=== PATIENT | male | born 1970 | race Caucasian/White ===

== ENCOUNTER 2018-12-01 11:28 | Emergency (ER) | payer MEDICARE, MEDICAID ==
[~2018-12-01] VITALS: Ht 180.3 cm; Wt 68.2 kg
[~2018-12-01 11:28] MED LIST: QUET300T2 PO; RISP3TAB44 PO
[2018-12-01 11:35] VITALS: BP 114/70
== END 2018-12-01 12:30 | disposition left against medical advice (07) ==
LOC: EMS 11:29
DX: Z76.0 Encounter for issue of repeat prescription (principal); K21.9 Gastro-esophageal reflux disease without esophagitis; F31.9 Bipolar disorder, unspecified; F20.9 Schizophrenia, unspecified; F17.210 Nicotine dependence, cigarettes, uncomplicated; F12.90 Cannabis use, unspecified, uncomplicated; F19.90 Other psychoactive substance use, unspecified, uncomplicated; Z53.21 Procedure and treatment not carried out due to patient leaving prior to being seen by health care provider

== ENCOUNTER 2018-12-22 02:05 | Inpatient (IN) | payer MEDICAID, MEDICARE ==
[~2018-12-22] VITALS: Ht 175.3 cm; Wt 60.8 kg
[2018-12-22] MEDS ORDERED: ZOLPIDEM TARTRATE 10 MG TABLET PO PRN (03:00)
[2018-12-22] MEDS ORDERED: OLANZapine 5 MG TABLET PO PRN (03:00)
[2018-12-22 03:49] LABS: AMPHET/METH SCREEN,URINE NEGATIVE (NEGATIVE); BARBITURATE SCREEN, URINE NEGATIVE (NEGATIVE); BENZODIAZEPINES SCREEN,URINE NEGATIVE (NEGATIVE); CANNABINOID SCREEN,URINE NEGATIVE (NEGATIVE); COCAINE SCREEN,URINE NEGATIVE (NEGATIVE); METHADONE SCREEN, URINE NEGATIVE (NEGATIVE); OPIATE SCREEN,URINE NEGATIVE (NEGATIVE)
[2018-12-22 03:50] LABS: PHENCYCLIDINE SCREEN,URINE NEGATIVE (NEGATIVE)
[2018-12-22] MEDS: LORazepam 2 MG TABLET PO PRN ×2 (04:08→20:11)
[2018-12-22 05:26] VITALS: BP 110/75
[2018-12-22] MEDS ORDERED: PNEUMOCOCCAL VACCINE POLYVALENT 0.5 ML VIAL [PPSV23] IM ONE (05:45)
[2018-12-22] MEDS ORDERED: MAGNESIUM HYDROXIDE SUSPENSION 30 ML UDCUP PO PRN ×2 (07:45→13:15)
[2018-12-22] MEDS ORDERED: GuaiFENesin/D-METHORPHAN [SUGAR-FREE] 200-20MG/10 ML SYRUP UDCUP PO PRN ×2 (07:45→13:15)
[2018-12-22] MEDS ORDERED: NICOTINE 14 MG/24 HOUR PATCH TD PRN (07:45)
[2018-12-22] MEDS ORDERED: ALBUTEROL SULFATE HFA 90 MCG/PUFF 8 GM INHALER IH PRN (07:45)
[2018-12-22] MEDS ORDERED: LOPERAMIDE HCL 2 MG CAPSULE PO PRN ×2 (07:45→13:15)
[2018-12-22] MEDS ORDERED: CloNIDine HCL 0.1 MG TABLET PO PRN (07:45)
[2018-12-22] MEDS ORDERED: PETROLATUM,WHITE 71 GM JELLY TP PRN (07:45)
[2018-12-22] MEDS ORDERED: ONDANSETRON HCL 4 MG TABLET PO PRN (07:45)
[2018-12-22] MEDS ORDERED: MAG HYDROX/AL HYDROX/SIMETH ES 30 ML SUSPENSION UDCUP PO PRN ×2 (07:45→13:15)
[2018-12-22] MEDS ORDERED: IBUPROFEN 400 MG TABLET PO PRN (07:45)
[2018-12-22] MEDS ORDERED: ACETAMINOPHEN 325 MG TABLET PO PRN ×2 (07:45→13:15)
[2018-12-22] MEDS: BACITRACIN 28.4 GM OINTMENT TP SCH ×2 (07:54→17:41)
[2018-12-22] MEDS ORDERED: HydrOXYzine PAMOATE 50 MG CAPSULE PO PRN (13:15)
[2018-12-22] MEDS ORDERED: PROMETHAZINE HCL 25 MG TABLET PO PRN (13:15)
[2018-12-22] MEDS ORDERED: PALIPERIDONE 1.5 MG ER TABLET PO PRN (13:15)
[2018-12-22] MEDS ORDERED: TUBERCULIN, PURIFIED PROTEIN DERIVATIVE 5 TU/0.1 ML SYG ID ONE (13:15)
[2018-12-22] MEDS: PALIPERIDONE PALMITATE 234 MG/1.5 ML SYRINGE IM ONE ×2 (14:35→14:44)
[2018-12-22] MEDS: THIAMINE HCL 100 MG TABLET PO SCH (17:41)
[2018-12-22 18:25] VITALS: BP 120/67
[2018-12-22] MEDS: PALIPERIDONE 3 MG ER TABLET PO SCH (20:11)
[2018-12-23 06:13] LABS: BASOPHILS % (AUTO) 0.3 % (0.0-2.0); EOSINOPHILS % (AUTO) 0.2 % (1.0-6.0); HEMATOCRIT 38.3 % (41-53); HEMOGLOBIN 13.4 g/dL (13.5-17.5); LYMPHOCYTES # (AUTO) 0.8 K/uL (1.0-4.8); LYMPHOCYTES % (AUTO) 7.2 % (22.0-44.0); MEAN CORPUSCULAR HEMOGLOBIN 31.4 pg (26.0-34.0); MEAN CORPUSCULAR HGB CONC 34.9 G/dL (31.0-37.0); MEAN CORPUSCULAR VOLUME 90 fL (80-100); MONOCYTES # (AUTO) 0.8 K/uL (0.1-1.0); MONOCYTES % (AUTO) 6.9 % (2.0-9.0); NEUTROPHILS # (AUTO) 9.5 K/uL (1.8-7.7); PLATELET COUNT (AUTO) 340 K/uL (150-450); RED BLOOD CELL COUNT(AUTO) 4.25 MIL/uL (4.50-5.90); RED CELL DISTRIBUTION WIDTH 13.5 % (11.5-14.5)
[2018-12-23 06:45] LABS: NEUTROPHILS % (AUTO) 85.4 % (40.0-70.0)
[2018-12-23 06:56] LABS: ALANINE AMINOTRANSFERASE 34 U/L (12-78); ALBUMIN 2.5 g/dL (3.4-5.0); ALKALINE PHOSPHATASE 69 U/L (46-116); ANION GAP 5 mmol/L (8-16); ASPARTATE AMINOTRANSFERASE 29 U/L (15-37); BILIRUBIN,TOTAL 0.5 mg/dL (0.1-1.0); CALCIUM, TOTAL 8.9 mg/dL (8.8-10.5); CARBON DIOXIDE 31 mmol/L (22-29); CHLORIDE 97 mmol/L (98-107); CREATININE 0.81 mg/dL (0.60-1.30); GLOMERULAR FILTR. RATE CALC > 60 mL/min (>60); GLUCOSE,RANDOM 89 mg/dL (70-110); HDL CHOLESTEROL 53 mg/dL (40-60); SODIUM SERUM 133 mmol/L (136-145); TOTAL PROTEIN, SERUM 6.1 g/dL (6.4-8.2); TRIGLYCERIDES 66 mg/dL (15-150); UREA NITROGEN, BLOOD 13 mg/dL (7-18)
[2018-12-23 07:03] LABS: HEMOGLOBIN A1C 5.7 % (4.5-6.2)
[2018-12-23 07:21] LABS: CHOL/HDL RATIO 2.1 (4.2-7.3); CHOLESTEROL 111 mg/dL (131-200); LDL CHOL (CALC.) 45 mg/dL (0-130); THYROID STIMULATING HORMONE 2.84 uIU/mL (0.36-3.74)
[2018-12-23 08:26] VITALS: BP 116/72
[2018-12-23] MEDS: THIAMINE HCL 100 MG TABLET PO SCH ×2 (09:56→16:08)
[2018-12-23] MEDS: FOLIC ACID 1 MG TABLET PO SCH (09:57)
[2018-12-23] MEDS: MULTIVITAMINS WITH MINERALS, THERAPEUTIC TABLET PO SCH (09:57)
[2018-12-23] MEDS: NALTREXONE HCL 50 MG TABLET PO SCH (09:58)
[2018-12-23] MEDS: BACITRACIN 28.4 GM OINTMENT TP SCH ×2 (09:59→16:08)
[2018-12-23] MEDS ORDERED: PALI156D IM (11:31)
[2018-12-23] MEDS ORDERED: NALT50TA PO (11:31)
[2018-12-23 16:32] VITALS: BP 123/72
[2018-12-23] MEDS: PALIPERIDONE 3 MG ER TABLET PO SCH (20:13)
[2018-12-24] MEDS: FOLIC ACID 1 MG TABLET PO SCH (09:48)
[2018-12-24] MEDS: MULTIVITAMINS WITH MINERALS, THERAPEUTIC TABLET PO SCH (09:48)
[2018-12-24] MEDS: THIAMINE HCL 100 MG TABLET PO SCH (09:48)
[2018-12-24] MEDS: NALTREXONE HCL 50 MG TABLET PO SCH (09:49)
[2018-12-24] MEDS: BACITRACIN 28.4 GM OINTMENT TP SCH (09:49)
[2018-12-24] MEDS ORDERED: MULT-1239 PO (12:39)
[2018-12-24] MEDS ORDERED: THIA100T67 PO (12:39)
[2018-12-24] MEDS ORDERED: FOLI1 PO (12:39)
[2018-12-26] MEDS ORDERED: PALIPERIDONE PALMITATE 156 MG/ML SYRINGE IM ONE (09:00)
== END 2018-12-24 15:05 | disposition home or self-care (01) | DRG 885 ==
LOC: EMS 02:05 → B2X 03:06 → 3EC 04:32
PROVIDERS: ADMIT Psychiatry & Neurology Psychiatry; ATTEND Psychiatry & Neurology Psychiatry
DX: F20.9 Schizophrenia, unspecified (principal); F12.90 Cannabis use, unspecified, uncomplicated; F10.10 Alcohol abuse, uncomplicated; F15.90 Other stimulant use, unspecified, uncomplicated; F29 Unspecified psychosis not due to a substance or known physiological condition; F17.200 Nicotine dependence, unspecified, uncomplicated; F19.10 Other psychoactive substance abuse, uncomplicated; F41.9 Anxiety disorder, unspecified; I10 Essential (primary) hypertension; K21.9 Gastro-esophageal reflux disease without esophagitis; Z59.0 Homelessness; Z81.8 Family history of other mental and behavioral disorders; Z91.19 Patient's noncompliance with other medical treatment and regimen; Z88.0 Allergy status to penicillin; Z88.8 Allergy status to other drugs, medicaments and biological substances; Z71.41 Alcohol abuse counseling and surveillance of alcoholic; Z71.51 Drug abuse counseling and surveillance of drug abuser; Z71.6 Tobacco abuse counseling; Z28.21 Immunization not carried out because of patient refusal
CPT/HCPCS: 83036; 84443; 87081; 90686; 90732

== ENCOUNTER 2019-01-02 20:15 | Emergency (ER) | payer MEDICARE ==
[~2019-01-02] VITALS: Ht 180.3 cm; Wt 61.4 kg
[~2019-01-02 20:15] MED LIST changes: +FOLI1 PO; +MULT-1239 PO; +NALT50TA PO; +PALI156D IM; -QUET300T2 PO; -RISP3TAB44 PO; +THIA100T67 PO
[2019-01-02 20:29] VITALS: BP 113/72
== END 2019-01-02 20:59 | disposition left against medical advice (07) ==
LOC: EMS 20:17
DX: R51 Headache (principal); F31.9 Bipolar disorder, unspecified; K21.9 Gastro-esophageal reflux disease without esophagitis; I10 Essential (primary) hypertension; F20.9 Schizophrenia, unspecified; F17.210 Nicotine dependence, cigarettes, uncomplicated; F12.90 Cannabis use, unspecified, uncomplicated; F19.90 Other psychoactive substance use, unspecified, uncomplicated; Z76.0 Encounter for issue of repeat prescription; Z53.21 Procedure and treatment not carried out due to patient leaving prior to being seen by health care provider

== ENCOUNTER 2019-01-05 18:02 | Emergency (ER) | payer MEDICARE ==
[~2019-01-05] VITALS: Ht 172.7 cm; Wt 68.2 kg
[2019-01-05] MEDS ORDERED: OXYC-43 PO (18:23)
[2019-01-05] MEDS ORDERED: QUET25TA PO (18:23)
[2019-01-05 19:34] VITALS: BP 97/59
[2019-01-05] MEDS ORDERED: QUEtiapine FUMARATE 100 MG TABLET PO ONE (19:45)
== END 2019-01-05 20:25 | disposition home or self-care (01) ==
LOC: EMS 18:04
DX: F15.10 Other stimulant abuse, uncomplicated (principal); F20.9 Schizophrenia, unspecified; F31.9 Bipolar disorder, unspecified; I10 Essential (primary) hypertension; K21.9 Gastro-esophageal reflux disease without esophagitis; F12.90 Cannabis use, unspecified, uncomplicated; F17.210 Nicotine dependence, cigarettes, uncomplicated; Z88.0 Allergy status to penicillin; Z88.8 Allergy status to other drugs, medicaments and biological substances

== ENCOUNTER 2019-01-26 19:05 | Emergency (ER) | payer MEDICAID, MEDICARE ==
[~2019-01-26] VITALS: Ht 180.3 cm; Wt 60.0 kg
[~2019-01-26 19:05] MED LIST changes: -FOLI1 PO; -MULT-1239 PO; -NALT50TA PO; +OXYC-43 PO; -PALI156D IM; +QUET25TA PO; -THIA100T67 PO
[2019-01-26 20:25] LABS: BASOPHILS % (AUTO) 0.5 % (0.0-2.0); EOSINOPHILS % (AUTO) 0 % (1.0-6.0); HEMOGLOBIN 10.3 g/dL (13.5-17.5); LYMPHOCYTES # (AUTO) 0.6 K/uL (1.0-4.8); LYMPHOCYTES % (AUTO) 5.9 % (22.0-44.0); MEAN CORPUSCULAR HEMOGLOBIN 30.9 pg (26.0-34.0); MEAN CORPUSCULAR HGB CONC 34.4 G/dL (31.0-37.0); MEAN CORPUSCULAR VOLUME 90 fL (80-100); MONOCYTES # (AUTO) 0.5 K/uL (0.1-1.0); MONOCYTES % (AUTO) 4.9 % (2.0-9.0); NEUTROPHILS # (AUTO) 8.8 K/uL (1.8-7.7); PLATELET COUNT (AUTO) 279 K/uL (150-450); RED BLOOD CELL COUNT(AUTO) 3.33 MIL/uL (4.50-5.90); RED CELL DISTRIBUTION WIDTH 13.4 % (11.5-14.5)
[2019-01-26 20:28] LABS: NEUTROPHILS % (AUTO) 88.7 % (40.0-70.0)
[2019-01-26 20:32] LABS: ANION GAP 6 mmol/L (8-16); CALCIUM, TOTAL 8.6 mg/dL (8.8-10.5); CARBON DIOXIDE 29 mmol/L (22-29); CHLORIDE 96 mmol/L (98-107); CREATININE 0.84 mg/dL (0.60-1.30); GLOMERULAR FILTR. RATE CALC > 60 mL/min (>60); GLUCOSE,RANDOM 114 mg/dL (70-110); POTASSIUM 3.5 mmol/L (3.5-5.1); SODIUM SERUM 131 mmol/L (136-145); UREA NITROGEN, BLOOD 19 mg/dL (7-18)
[2019-01-26 20:39] LABS: ALANINE AMINOTRANSFERASE 19 U/L (12-78); ALBUMIN 2.4 g/dL (3.4-5.0); ALKALINE PHOSPHATASE 68 U/L (46-116); ASPARTATE AMINOTRANSFERASE 24 U/L (15-37); BILIRUBIN,TOTAL 0.4 mg/dL (0.1-1.0); TOTAL PROTEIN, SERUM 5.7 g/dL (6.4-8.2)
[2019-01-26 21:05] LABS: PLATELET MORPHOLOGY COMMENT NORMAL
[2019-01-26 21:29] LABS: AMPHET/METH SCREEN,URINE NEGATIVE (NEGATIVE); BARBITURATE SCREEN, URINE NEGATIVE (NEGATIVE); BENZODIAZEPINES SCREEN,URINE NEGATIVE (NEGATIVE); CANNABINOID SCREEN,URINE NEGATIVE (NEGATIVE); COCAINE SCREEN,URINE NEGATIVE (NEGATIVE); METHADONE SCREEN, URINE NEGATIVE (NEGATIVE); OPIATE SCREEN,URINE NEGATIVE (NEGATIVE)
[2019-01-26 21:31] LABS: PHENCYCLIDINE SCREEN,URINE NEGATIVE (NEGATIVE)
[2019-01-26 21:50] VITALS: BP 119/69
== END 2019-01-26 23:25 | disposition home or self-care (01) ==
LOC: EMS 19:07
DX: F20.9 Schizophrenia, unspecified (principal); F32.9 Major depressive disorder, single episode, unspecified; F31.9 Bipolar disorder, unspecified; K21.9 Gastro-esophageal reflux disease without esophagitis; I10 Essential (primary) hypertension; F17.210 Nicotine dependence, cigarettes, uncomplicated; F12.90 Cannabis use, unspecified, uncomplicated; F19.90 Other psychoactive substance use, unspecified, uncomplicated; Z88.0 Allergy status to penicillin; Z88.8 Allergy status to other drugs, medicaments and biological substances
CPT/HCPCS: 36415; 80053; 80307; 85025; 99284; G0480

== ENCOUNTER 2019-02-09 22:38 | Emergency (ER) | payer MEDICAID ==
[~2019-02-09] VITALS: Ht 185.4 cm; Wt 61.4 kg
[~2019-02-09 22:38] MED LIST changes: -OXYC-43 PO
[2019-02-09 23:12] LABS: BASOPHILS % (AUTO) 0.5 % (0.0-2.0); EOSINOPHILS % (AUTO) 0.1 % (1.0-6.0); HEMATOCRIT 30.7 % (41-53); HEMOGLOBIN 10.3 g/dL (13.5-17.5); LYMPHOCYTES # (AUTO) 1.5 K/uL (1.0-4.8); LYMPHOCYTES % (AUTO) 10.9 % (22.0-44.0); MEAN CORPUSCULAR HEMOGLOBIN 29.7 pg (26.0-34.0); MEAN CORPUSCULAR HGB CONC 33.5 G/dL (31.0-37.0); MEAN CORPUSCULAR VOLUME 89 fL (80-100); MONOCYTES # (AUTO) 0.7 K/uL (0.1-1.0); MONOCYTES % (AUTO) 5.2 % (2.0-9.0); NEUTROPHILS # (AUTO) 11.6 K/uL (1.8-7.7); NEUTROPHILS % (AUTO) 83.3 % (40.0-70.0); PLATELET COUNT (AUTO) 526 K/uL (150-450); RED BLOOD CELL COUNT(AUTO) 3.46 MIL/uL (4.50-5.90); RED CELL DISTRIBUTION WIDTH 14.1 % (11.5-14.5)
[2019-02-09 23:20] LABS: ANION GAP 9 mmol/L (8-16); CARBON DIOXIDE 28 mmol/L (22-29); CHLORIDE 99 mmol/L (98-107); CREATININE 1.16 mg/dL (0.60-1.30); GLOMERULAR FILTR. RATE CALC > 60 mL/min (>60); GLUCOSE,RANDOM 139 mg/dL (70-110); POTASSIUM 4.7 mmol/L (3.5-5.1); SODIUM SERUM 136 mmol/L (136-145); UREA NITROGEN, BLOOD 21 mg/dL (7-18)
[2019-02-09 23:26] LABS: ALANINE AMINOTRANSFERASE 27 U/L (12-78); ALBUMIN 2.7 g/dL (3.4-5.0); ALKALINE PHOSPHATASE 70 U/L (46-116); ASPARTATE AMINOTRANSFERASE 31 U/L (15-37); BILIRUBIN,TOTAL 0.5 mg/dL (0.1-1.0); TOTAL PROTEIN, SERUM 6.5 g/dL (6.4-8.2)
[2019-02-09 23:41] LABS: AMPHET/METH SCREEN,URINE NEGATIVE (NEGATIVE); BARBITURATE SCREEN, URINE NEGATIVE (NEGATIVE); BENZODIAZEPINES SCREEN,URINE NEGATIVE (NEGATIVE); CANNABINOID SCREEN,URINE POSITIVE (NEGATIVE); COCAINE SCREEN,URINE NEGATIVE (NEGATIVE); METHADONE SCREEN, URINE NEGATIVE (NEGATIVE); OPIATE SCREEN,URINE NEGATIVE (NEGATIVE)
[2019-02-09 23:42] LABS: PHENCYCLIDINE SCREEN,URINE NEGATIVE (NEGATIVE)
[2019-02-10 00:58] VITALS: BP 130/77
== END 2019-02-10 01:36 | disposition left against medical advice (07) ==
LOC: EMS 22:39
DX: R45.851 Suicidal ideations (principal); F31.9 Bipolar disorder, unspecified; F20.9 Schizophrenia, unspecified; I10 Essential (primary) hypertension; F17.210 Nicotine dependence, cigarettes, uncomplicated; F12.90 Cannabis use, unspecified, uncomplicated; F19.90 Other psychoactive substance use, unspecified, uncomplicated; Z53.21 Procedure and treatment not carried out due to patient leaving prior to being seen by health care provider
CPT/HCPCS: 36415; 80053; 80307; 85025; G0480